=== PATIENT | female | born 1950 | race Caucasian/White ===

== ENCOUNTER 2022-09-21 19:28 | Inpatient (IN) | payer OTHER, MEDICAID ==
[~2022-09-21] VITALS: Ht 170.2 cm; Wt 83.9 kg
[2022-09-21 19:28] VITALS: BP 130/70
[~2022-09-21 19:28] MED LIST: ASPI-1822 PO; BISA-213 RC; CYAN1CRY; DOCU-299 PO; FERR-20 PO; FOLI1TAB90 PO; LEVO-481 PO; MAGN400S60 GT; MELA1TAB3 PO; PANT40EC56 PO; POLY17PD65 PO; RIVA15TA1 PO; ROC2I IM; ZINC220T4 PO
--- NOTE | 2022-09-21 19:35 | NUR ---
Patient being evaluated by physician ADARSH at bedside.
--- NOTE | 2022-09-21 19:38 | NUR ---
PT STEVEA. TAKEN TO BED 1
--- NOTE | 2022-09-21 19:56 | NUR ---
LAB AND XRAY AT BEDSIDE.
--- NOTE | 2022-09-21 20:02 | NUR ---
PT TO CT
[2022-09-21 20:08] LABS: BASOPHILS # (AUTO) 0.1 K/uL (0.00-0.22); BASOPHILS % (AUTO) 1.5 % (0.0-2.0); EOSINOPHILS # (AUTO) 0.1 K/uL (0-0.4); EOSINOPHILS % (AUTO) 1.2 % (0.0-4.0); HEMATOCRIT 36.6 % (36-48); HEMOGLOBIN 11.8 g/dL (12.0-16.0); LYMPHOCYTES # (AUTO) 2.5 K/uL (2.5-16.5); LYMPHOCYTES % (AUTO) 27.6 % (20.5-51.1); MEAN CORPUSCULAR HEMOGLOBIN 26 pg (27-31); MEAN CORPUSCULAR HGB CONC 32 g/dL (33-37); MEAN CORPUSCULAR VOLUME 82.2 fL (80-94); MONOCYTES # (AUTO) 0.5 K/uL (0.8-1.0); MONOCYTES % (AUTO) 5.5 % (1.7-9.3); NEUTROPHILS # (AUTO) 5.9 K/uL (1.8-7.7); NEUTROPHILS % (AUTO) 64.2 % (42.2-75.2); PLATELET COUNT (AUTO) 356 K/uL (140-450); RED BLOOD CELL COUNT(AUTO) 4.45 MIL/uL (4.20-5.40); WHITE BLOOD COUNT (AUTO) 9.1 K/uL (4.8-10.8)
--- NOTE | 2022-09-21 20:22 | NUR ---
PT BACK FROM CT
[2022-09-21 20:29] LABS: ALBUMIN 2.8 g/dL (3.4-5.0); ANION GAP 14.2 (8-16); ASPARTATE AMINOTRANSFERASE 17 U/L (15-37); CARBON DIOXIDE 27.8 mmol/L (21-32); CHLORIDE 105 mmol/L (98-107); CREATININE 0.8 mg/dL (0.6-1.3); GFR ARICAN-AMERICAN 91 mL/min (>90); GLUCOSE 138 mg/dL (74-106); SODIUM SERUM 143 mmol/L (136-145); TOTAL BILIRUBIN 0.1 mg/dL (0.0-1.0); UREA NITROGEN, BLOOD 19 mg/dL (7-18)
[2022-09-21 20:43] LABS: BILIRUBIN,URINE NEGATIVE (NEGATIVE); BLOOD, URINE 2+ (NEGATIVE); LEUKOCYTE ESTERASE ,URINE 3+ (NEGATIVE); NITRITE, URINE POSITIVE (NEGATIVE); UGLUCOSE NEGATIVE (NEGATIVE)
[2022-09-21 20:44] LABS: APPEARANCE,URINE HAZY (CLEAR); COLOR,URINE STRAW (YELLOW)
[2022-09-21 21:08] LABS: RBC,URINE 20-50 /HPF (0-5); WBC,URINE 80-100 /HPF (0-5)
[2022-09-21] MEDS ORDERED: cefTRIAXone 2,000 MG in DEXTROSE 5% 100 ML IV ONE (22:05)
[2022-09-21] MEDS ORDERED: cefTRIAXone 2,000 MG VIAL ONE (22:07)
[2022-09-21] MEDS ORDERED: MORPHINE SULFATE 2 MG/ML SYR IVP PRN (22:30)
[2022-09-21] MEDS ORDERED: MAG SULF 2000 MG/WATER PREMIX 50 ML IV PRN (22:30)
[2022-09-21] MEDS ORDERED: ACETAMINOPHEN 325 MG TAB PO PRN (22:30)
[2022-09-21] MEDS ORDERED: POTASSIUM CHLORIDE 10 MEQ TABER PO PRN (22:30)
[2022-09-21] MEDS ORDERED: LORazepam 2 MG/ML VIAL IVP PRN (22:30)
[2022-09-21] MEDS ORDERED: ZOLPIDEM 10 MG TAB PO PRN (22:30)
[2022-09-21] MEDS ORDERED: DOCUSATE SODIUM 100 MG GELCAP PO PRN (22:30)
[2022-09-21] MEDS ORDERED: ONDANSETRON 4 MG/2 ML VIAL IVP PRN (22:30)
[2022-09-21] MEDS ORDERED: HALOPERIDOL IM 5 MG/ML VIAL IVP ONE (22:35)
--- NOTE | 2022-09-21 22:37 | NUR ---
JULIO COLLECTED AND SENT TO LAB
--- NOTE | 2022-09-21 22:42 | NUR ---
PT MEDICATED PER ORDERS GIVEN. PT UPDATED ON POC WITH FULL RETURNED VERBAL UNDERSTANDING. PT HAS DEMENTIA AND REQUIRES FREQUEST REASSURANCE THAT SHE IS OK AND NOT ALONE. PT WANTS TO GO HOME. EXPLAINED TO PT SHE NEEDS TO BE ADMITTED DUE TO UTI.
--- NOTE | 2022-09-21 22:42 | NUR ---
MED RECONCILE COMPLETED
[2022-09-21 23:40] VITALS: BP 117/63
--- NOTE | 2022-09-21 23:45 | NUR ---
BEDSIDE REPORT TO KYRA RN WITH FULL RETURNED VERBAL UNDERSTANDING. PT TO 121B VIA LUIS. NO S/S OF DISTRESS NOTED.
--- NOTE | 2022-09-21 23:45 | NUR ---
Pt transferred to Med/Surg via [facility] [place] .
--- NOTE | 2022-09-22 | NUR ---
ADMITTED PATIENT FROM ER VIA GURNEY. RECEIVED AWAKE BUT CONFUSED. PATIENT ORIENTED TO SELF ONLY. PATIENT DENIES ABDOMINAL PAIN, NAUSEA AND VOMITING. NO SIGN AND SYMPTOMS OF DISTRESS NOTED AT THIS TIME. ORIENTED THE PATIENT TO THE ROOM SETTING AND USE OF CALL LIGHT SYSTEM. PATIENT UNABLE TO COMPREHEND. FALL PRECAUTION IMPLEMENTED. SIDE RAILS UP AND IN LOW POSITION. CALL LIGHT WITHIN REACH.
--- NOTE | 2022-09-22 02:00 | NUR ---
PATIENT ASLEEP AT THIS TIME. VISIBLE CHEST RISE AND FALL NOTED. WILL CONTINUE TO OBSERVE.
--- NOTE | 2022-09-22 04:00 | NUR ---
PATIENT STILL ASLEEP AND NOT IN ANY DISTRESS. WILL CONTINUE TO OBSERVE.
[2022-09-22 05:23] LABS: BASOPHILS # (AUTO) 0.1 K/uL (0.00-0.22); BASOPHILS % (AUTO) 0.6 % (0.0-2.0); EOSINOPHILS # (AUTO) 0.2 K/uL (0-0.4); EOSINOPHILS % (AUTO) 1.9 % (0.0-4.0); HEMATOCRIT 34.1 % (36-48); HEMOGLOBIN 11.1 g/dL (12.0-16.0); LYMPHOCYTES # (AUTO) 2.7 K/uL (2.5-16.5); LYMPHOCYTES % (AUTO) 29.6 % (20.5-51.1); MEAN CORPUSCULAR HEMOGLOBIN 27 pg (27-31); MEAN CORPUSCULAR HGB CONC 33 g/dL (33-37); MEAN CORPUSCULAR VOLUME 82.2 fL (80-94); MONOCYTES # (AUTO) 0.6 K/uL (0.8-1.0); MONOCYTES % (AUTO) 7.1 % (1.7-9.3); NEUTROPHILS # (AUTO) 5.5 K/uL (1.8-7.7); NEUTROPHILS % (AUTO) 60.8 % (42.2-75.2); PLATELET COUNT (AUTO) 329 K/uL (140-450); RED BLOOD CELL COUNT(AUTO) 4.15 MIL/uL (4.20-5.40); WHITE BLOOD COUNT (AUTO) 9.1 K/uL (4.8-10.8)
[2022-09-22 06:07] LABS: ANION GAP 11.8 (8-16); CARBON DIOXIDE 28.5 mmol/L (21-32); CREATININE 0.8 mg/dL (0.6-1.3); POTASSIUM 4.3 mmol/L (3.5-5.1)
--- NOTE | 2022-09-22 06:22 | NUR ---
NO ACUTE EVENT THROUGHOUT THE NIGHT. PATIENT NOT IN ANY DISTRESS AND NO COMPLAIN AT THIS TIME. PATIENT STABLE. ALL NEEDS ATTENDED. CALL LIGHT WITHIN REACH . WILL ENDORSE THE PATIENT TO THE ONCOMING NURSE FOR CONTINUITY OF CARE.
--- NOTE | 2022-09-22 07:19 | NUR ---
ENDORSED PATIENT TO DAY NURSE. PATIENT IS STABLE. SIGNING OFF.
--- NOTE | 2022-09-22 07:46 | NUR ---
GOT REPORT FROM THE NIGHT NURSE , PT SLEEPING NO SOB.[id number]
[2022-09-22 08:00] VITALS: BP 170/86
[2022-09-22] MEDS: FERROUS SULFATE 325 MG TABEC PO SCH (08:37)
[2022-09-22] MEDS: FOLIC ACID 1 MG TAB PO SCH (08:38)
[2022-09-22] MEDS: ASPIRIN 81 MG TAB.CHEW PO SCH (08:38)
[2022-09-22] MEDS: DOCUSATE SODIUM 100 MG GELCAP PO SCH ×2 (08:38→20:16)
[2022-09-22] MEDS: POLYETHYLENE GLYCOL 17 GM/PKT PO SCH (08:39)
--- NOTE | 2022-09-22 09:56 | NUR ---
PATIENT HAS BEEN SCREENED AND CATEGORIZED LOW NUTRITION RISK. PATIENT WILL BE SEEN WITHIN 7 DAYS OF ADMISSION. 09/28/[address]
--- NOTE | 2022-09-22 11:00 | NUR ---
PROVIDED DISCHARGE INSTRUCTIONS, PT VERBALIZED UNDERSTANDING. REMOVED PT'S IV, CANULA INTACT. REMOVED PTS ID BAND. PT IN STABLE CONDITION WITH NO DISCOMFORT NOR SOB. ESCORTED TO THE FRONT LOBBY, PT LEFT ON FOOT TO RETRIEVE HIS BICYCLE.
[2022-09-22 12:09] VITALS: BP 123/86
--- NOTE | 2022-09-22 17:30 | NUR ---
DISCHARGE PLANNING SW ATTEMPTED TO MEET WITH PATIENT AT BEDSIDE TO DISCUSS AND GATHER COLLATERAL INFORMATION, PATIENT WAS NOT AWAKE AND ALERT, SW ATTEMPTED TO WAKE HER UP BUT PATIENT CONTINUE SLEEPING. SW LEFT ROOM AND WILL ATTEMPT IN ANOTHER TIME. SW ATTEMPTED TO CONTACT PATIENT'S FAMILY MEMBER LISTED IN EMERGENCY LIST [facility]UEL AT BUT NO RESPONSE. SW ATTEMPTED TO CALL [facility] AT TO DISCUSS AND GATHER PATIENT INFORMATION, NO ONE RESPONDED SW ENDED THE CALL. SW/CM WILL FOLLOW UP WITH PATIENT NEEDED.
--- NOTE | 2022-09-22 19:30 | NUR ---
RECEIVED REPORT FROM DAY SHIFT NURSE NORMAN FOR CONTINUITY OF CARE. PATIENT IS A&O X0, NON VERBAL & CONFUSED. PATIENT IS ON ROOM AIR, BREATHING IS NORMAL WITH SYMMETRICAL RISE AND FALL OF CHEST. IV IS A 22G RFA, NO FLUIDS RUNNING (SALINE LOCKED). PATIENT IS SLEEPING IN HIGH FOWLERS POSITION. BED IS IN LOWEST POSITION, WHEELS LOCKED, CALL LIGHT IN PLACE. WILL CONTINUE TO OBSERVE PATIENT.
[2022-09-22 20:00] VITALS: BP 112/58
--- NOTE | 2022-09-22 20:45 | NUR ---
ADMINISTERED 2100 MEDICATION TO PATIENT. IVPB WAS HUNG ALONG WITH A PRIMARY LINE AND A 250ML BAG OF NS TO RUN WITH IVPB. PATIENT WAS HOOKED UP TO IV, AND IV FLUIDS WERE STARTED WITHOUT ANY COMPLICATIONS. PATIENT WAS GIVEN COLACE GEL CAP BY MOUTH. PATIENT IS UNABLE TO MOVE EXTREMITIES, HAD TO PLACE PILL IN PATIENT'S MOUTH, PATIENT THEN SWALLOWED MEDICATION WITHOUT DIFFICULTY. PATIENT WAS THEN GIVEN WATER TO HELP WASH DOWN PILL, AND WAS THEN FED DINNER. I HAD NO ISSUES IN GIVING PATIENT HER MEAL; PATIENT OPENED MOUTH, CHEWED FOOD AND SWALLOWED WITHOUT ASSISTANCE OR PROMPTING NEEDED. PATIENT IS UNABLE TO FEED HERSELF DUE TO IMMOBILIZATION OF EXTREMITIES. PATIENT TOLERATED FEEDING WELL, AND ATE 100% OF DINNER. BREATHING IS NORMAL WITH SYMMETRICAL RISE AND FALL OF CHEST. WILL CONTINUE TO OBSERVE PATIENT.
--- NOTE | 2022-09-22 23:00 | NUR ---
LOOKED IN ON PATIENT; PATIENT WAS SLEEPING, SITTING IN HIGH FOWLERS POSITION. BREATHING IS NORMAL WITH SYMMETRICAL RISE AND FALL OF CHEST. BED IS IN LOWEST POSITION, WHEELS LOCKED, CALL LIGHT IN PLACE. WILL CONTINUE TO OBSERVE PATIENT.
[2022-09-23] VITALS: BP 115/58
--- NOTE | 2022-09-23 01:00 | NUR ---
LOOKED IN ON PATIENT; PATIENT WAS SLEEPING, SITTING IN HIGH FOWLERS POSITION. BREATHING WAS NORMAL WITH SYMMETRICAL RISE AND FALL OF CHEST. WILL CONTINUE TO OBSERVE PATIENT.
--- NOTE | 2022-09-23 03:20 | NUR ---
LOOKED IN ON PATIENT; PATIENT WAS SLEEPING. BREATHING WAS NORMAL WITH SYMMETRICAL RISE AND FALL OF CHEST. BED IS IN LOWEST POSITION, WHEELS LOCKED CALL LIGHT IN PLACE. WILL CONTINUE TO OBSERVE PATIENT.
[2022-09-23 04:00] VITALS: BP 116/56
--- NOTE | 2022-09-23 05:00 | NUR ---
[facility] WAS PROVIDED TO PATIENT, AND PATIENT WAS REPOSITIONED WITH THE ASSISTANCE OF DIONE BUNDY. BREATHING IS NORMAL WITH SYMMETRICAL RISE AND FALL OF CHEST. WILL CONTINUE TO OBSERVE PATIENT.
[2022-09-23 05:23] LABS: BASOPHILS # (AUTO) 0.1 K/uL (0.00-0.22); BASOPHILS % (AUTO) 0.7 % (0.0-2.0); EOSINOPHILS # (AUTO) 0.3 K/uL (0-0.4); EOSINOPHILS % (AUTO) 3.2 % (0.0-4.0); HEMATOCRIT 33.4 % (36-48); LYMPHOCYTES # (AUTO) 2.4 K/uL (2.5-16.5); LYMPHOCYTES % (AUTO) 25.8 % (20.5-51.1); MEAN CORPUSCULAR HEMOGLOBIN 27 pg (27-31); MEAN CORPUSCULAR HGB CONC 33 g/dL (33-37); MEAN CORPUSCULAR VOLUME 81.3 fL (80-94); MONOCYTES # (AUTO) 0.7 K/uL (0.8-1.0); NEUTROPHILS % (AUTO) 63.3 % (42.2-75.2); PLATELET COUNT (AUTO) 319 K/uL (140-450); RED BLOOD CELL COUNT(AUTO) 4.11 MIL/uL (4.20-5.40); RED CELL DISTRIBUTION WIDTH 16.3 % (11.6-13.7); WHITE BLOOD COUNT (AUTO) 9.4 K/uL (4.8-10.8)
[2022-09-23 06:18] LABS: ANION GAP 14.5 (8-16); CARBON DIOXIDE 26.7 mmol/L (21-32); CREATININE 0.8 mg/dL (0.6-1.3); POTASSIUM 4.2 mmol/L (3.5-5.1)
--- NOTE | 2022-09-23 07:20 | NUR ---
ENDORSED TO DAY SHIFT LISSA FOR CONTINUITY OF CARE. PATIENT IS STABLE.
--- NOTE | 2022-09-23 07:21 | NUR ---
RECEIVED REPORT FROM PHARMACEUTICAL ANALYST NURSE FOR CONTINUITY OF CARE. PT IN BED AWAKE AT THIS TIME. PT IS NONVERBAL. PT HAS HX OF DEMENTIA. RESPIRATIONS ARE EVEN AND UNLABORED ON ROOM AIR. NO SIGNS OF DISTRESS NOTED. PT IS ON REGULAR DIET, TOLERATING WELL, REQUIRES ASSISTANCE WITH FEEDING. PT IS INCONTINENT OF BOWEL AND BLADDER, PT UTILIZES PURE WICK. PT HAS IV TO R HAND, 22G, SALINE LOCKED. SKIN IS WARM, DRY, AND INTACT. CALL LIGHT WITHIN REACH. ALL SAFETY MEASURES IN PLACE. WILL CONTINUE TO MONITOR.
[2022-09-23 08:00] VITALS: BP 127/79
--- NOTE | 2022-09-23 08:00 | NUR ---
REVIEWED AND DISCUSSED PLAN OF CARE WITH SAUL ALCARAZ. PT IN STABLE CONDITION.
[2022-09-23] MEDS: FERROUS SULFATE 325 MG TABEC PO SCH (09:46)
[2022-09-23] MEDS: DOCUSATE SODIUM 100 MG GELCAP PO SCH ×2 (09:46→20:22)
[2022-09-23] MEDS: POLYETHYLENE GLYCOL 17 GM/PKT PO SCH (09:46)
[2022-09-23] MEDS: ASPIRIN 81 MG TAB.CHEW PO SCH (09:46)
[2022-09-23] MEDS: FOLIC ACID 1 MG TAB PO SCH (09:46)
--- NOTE | 2022-09-23 09:55 | NUR ---
ADMINISTERED SCHEDULED MEDICATION. EDUCATED PT ON MEDS ADMINISTERED. NO REPLY FROM PT. PT NON-VERBAL WITH HX OF DEMENTIA. PT TOLERATED WELL. WILL CONTINUE TO MONITOR.
--- NOTE | 2022-09-23 13:02 | NUR ---
ASSISTED WITH CHANGING AND REPOSITIONING PT. PT HAD LARGE BOWEL MOVEMENT. PT TOLERATED WELL.
--- NOTE | 2022-09-23 15:31 | NUR ---
DC PLANNING PT HAS HX OF DEMENTIA, THEREFORE ASHLEY OUTREACHED TO [facility] TO GATHER COLLATERAL INFORMATION. SPOKE WITH PARVIN RODGERS, WHO REPORTS PATIENT IS ADMITTED TO [facility] UNDER LONGTERM CARE. PATIENT ADMITTED 10/23/22. PATIENT IS TOTAL CARE AND BED BOUND, CARE PROVIDED BY [facility] STAFF. PATIENT IS REPORTED TO BE VERBAL AND ABLE TO MAKE NEEDS KNOWN. PT IS REPORTED TO FREQUENTLY SCREAM AND YELL AT BASELINE. ASHLEY REPORTS SOME FAMILY INVOLVEMENT, BROTHER IS REPORTED TO CALL MONTHLY TO CHECK IN. PT IS UNDER GUARDIANSHIP WITH [facility]- PT CURRENTLY DOES NOT HAVE A WORKER ASSIGNED TO HER AT THE MOMENT HOWEVER, DUTY WORKER OF THE DAY WILL PROVIDE ASSISTANCE IF NEEDED. DC PLAN IS FOR PATIENT TO RETURN TO [facility] ONCE MEDICALLY STABLE. ASHLEY OUTREACHED TO OFFICE OF THE PUBLIC GUARDIAN [phone] AND SPOKE WITH LATANYA WHO CONFIRM THAT [facility] DOES NOT CURRENTLY HAVE AN ASSIGNED WORKER. LATANYA REPORTS THAT DUTY WORKER OF THE DAY WILL PROVIDE ANY ASSISTANCE IF REQUIRED.
[2022-09-23 16:00] VITALS: BP 96/53
--- NOTE | 2022-09-23 16:02 | NUR ---
WENT TO DO ROUNDS ON PT. PT IN BED RESTING AT THIS TIME. RESPIRATIONS ARE EVEN AND UNLABORED. NO SIGNS OF DISTRESS NOTED. NO S/S OF PAIN OR DISCOMFORT. WILL CONTINUE TO MONITOR.
--- NOTE | 2022-09-23 19:30 | NUR ---
RECEIVED ENDORSEMENT FROM DAY SHIFT NURSE FOR CONTINUITY OF CARE. PT IS AWAKE, ALERT AND RESPONSIVE TO STIMULI. PT IS CONFUSED, ABLE TO REPLY SIMPLE QUESTION AND FOLLOW SIMPLE INSTRUCTIONS. IV SALINE LOCK ON RIGHT HAND IS INTACT AND PATENT. SKIN INTACT AND WARM. PT IS ON STABLE CONDITION. CONTINUE MONITORING.
--- NOTE | 2022-09-23 19:31 | NUR ---
ENDORSED PT TO AIR CONDITIONING TECHNICIAN NURSE FOR CONTINUITY OF CARE. PT IS STABLE.
--- NOTE | 2022-09-23 19:40 | NUR ---
PT IS SCREAMING BUT WAS STOP FROM SCREAM ON STIMULI. PT IS ON STABLE CONDITION. NO SOB OR DISTRESS.
--- NOTE | 2022-09-23 20:00 | NUR ---
PT IS SCREAMING WITH NOT KNOWN REASON, REPLY ON SIMPLE QUESTION RAISED.
[2022-09-24] VITALS: BP 115/58
--- NOTE | 2022-09-24 00:30 | NUR ---
PT IS SLEEPING, STABLE WITH NO SOB OR DISTRESS.
--- NOTE | 2022-09-24 02:00 | NUR ---
PT IS ASLEEP.
--- NOTE | 2022-09-24 05:00 | NUR ---
PT WAKE UP AND BACK TO SLEEP.
[2022-09-24 05:44] LABS: BASOPHILS # (AUTO) 0.1 K/uL (0.00-0.22); BASOPHILS % (AUTO) 0.7 % (0.0-2.0); EOSINOPHILS # (AUTO) 0.3 K/uL (0-0.4); EOSINOPHILS % (AUTO) 3.3 % (0.0-4.0); HEMATOCRIT 33.3 % (36-48); HEMOGLOBIN 10.8 g/dL (12.0-16.0); LYMPHOCYTES # (AUTO) 2.5 K/uL (2.5-16.5); LYMPHOCYTES % (AUTO) 27.5 % (20.5-51.1); MEAN CORPUSCULAR HEMOGLOBIN 27 pg (27-31); MEAN CORPUSCULAR HGB CONC 32 g/dL (33-37); MEAN CORPUSCULAR VOLUME 82.5 fL (80-94); MONOCYTES # (AUTO) 0.6 K/uL (0.8-1.0); MONOCYTES % (AUTO) 6.8 % (1.7-9.3); NEUTROPHILS # (AUTO) 5.5 K/uL (1.8-7.7); NEUTROPHILS % (AUTO) 61.7 % (42.2-75.2); PLATELET COUNT (AUTO) 295 K/uL (140-450); RED BLOOD CELL COUNT(AUTO) 4.04 MIL/uL (4.20-5.40); RED CELL DISTRIBUTION WIDTH 16.3 % (11.6-13.7); WHITE BLOOD COUNT (AUTO) 8.9 K/uL (4.8-10.8)
[2022-09-24 05:53] LABS: CARBON DIOXIDE 28.1 mmol/L (21-32); CREATININE 0.8 mg/dL (0.6-1.3); POTASSIUM 4.1 mmol/L (3.5-5.1)
--- NOTE | 2022-09-24 07:15 | NUR ---
PT IS ON STABLE CONDITION, NO COMPLAINTS OF PAIN OR DISCOMFORT FROM PT. ALL SAFETY MEASURES ARE IN PLACE. NO SOB OR DISTRESS. ENDORSE TO DAY SHIFT NURSE FOR CONTINUITY OF CARE.
--- NOTE | 2022-09-24 07:20 | NUR ---
RECEIVED REPORT FROM EMERGENCY CARE TECH NURSE BONIFACIO FOR CONTINUITY OF CARE. NO SIGNS OF DISTRESS OR LABORED BREATHING AT THIS TIME. PT IS YELLING THAT SHE WANTS BREAKFAST. PT HAS HX OF DEMENTIA. SHE IS A&OX1-2, ON ROOM AIR, PT IS ON REGULAR DIET, TOLERATING WELL, REQUIRES ASSISTANCE WITH FEEDING. PT IS INCONTINENT OF BOWEL AND BLADDER, PT UTILIZES PURE WICK. PT HAS IV TO R HAND, 22G, SALINE LOCKED. SKIN IS WARM, DRY, AND INTACT. BED IN LOW POSITION, TWO SIDE RAILS UP AND CALL LIGHT WITHIN REACH. ALL SAFETY MEASURES IN PLACE AT THIS TIME. WILL CONTINUE TO MONITOR.
[2022-09-24 08:00] VITALS: BP 104/58
[2022-09-24] MEDS: ASPIRIN 81 MG TAB.CHEW PO SCH (09:39)
[2022-09-24] MEDS: FOLIC ACID 1 MG TAB PO SCH (09:39)
[2022-09-24] MEDS: DOCUSATE SODIUM 100 MG GELCAP PO SCH (09:39)
[2022-09-24] MEDS: FERROUS SULFATE 325 MG TABEC PO SCH (09:39)
[2022-09-24] MEDS: POLYETHYLENE GLYCOL 17 GM/PKT PO SCH (09:40)
--- NOTE | 2022-09-24 10:15 | NUR ---
PT GIVEN PRN TYLENOL FOR R THIGH PAIN A 02/05.
[2022-09-24] MEDS ORDERED: LEVO-481 PO (10:48)
--- NOTE | 2022-09-24 11:53 | NUR ---
PT RESTING IN BED WITH EYE CLOSED.
--- NOTE | 2022-09-24 12:09 | NUR ---
DC PLANNING: PATIENT HAS A DC ORDER TO RETURN TO [facility]. CALLED [facility] SPOKE WITH [facility] AND FAXED ALL PAPER WORK. CAN GO TO ROOM 38C # T0 GIVE REPORT [phone]. PER [facility] ARRANGED TRANSPORT WITH [facility] SHIPPING ROOM SUPERVISOR TIME BETWEEN 2-3 PM NOTIFIED SHERI CHARGE NURSE.
[2022-09-24 13:12] VITALS: BP 104/58
== END 2022-09-24 15:26 | DRG 689 ==
LOC: MED 19:28 → MMU 22:28 → MTU 23:29
PROVIDERS: ADMIT Family Medicine; ATTEND Family Medicine
DX: N39.0 Urinary tract infection, site not specified (principal); N17.0 Acute kidney failure with tubular necrosis; E44.0 Moderate protein-calorie malnutrition; E51.2 Wernicke's encephalopathy; D63.8 Anemia in other chronic diseases classified elsewhere; Z20.822 Contact with and (suspected) exposure to COVID-19; F10.10 Alcohol abuse, uncomplicated; E83.51 Hypocalcemia; Y90.9 Presence of alcohol in blood, level not specified; I10 Essential (primary) hypertension; E78.5 Hyperlipidemia, unspecified; Z86.711 Personal history of pulmonary embolism; Z68.29 Body mass index [BMI] 29.0-29.9, adult
CPT/HCPCS: 36415; 71045; 80048; 80053; 81001; 83735; 84484; 85025; 87081; 87086; 93005; 96365; 96375; 99285; J0696; J1630; J7060; Q0092